=== PATIENT | male | born 1945 | race Caucasian/White ===

== ENCOUNTER → 2024-02-18 10:23 | Outpatient (REF) | payer MEDICARE, OTHER, SELFPAY | LOC: RCS 10:23 | PROVIDERS: ATTENDING PHYSICIAN Internal Medicine Cardiovascular Disease; FAMILY PHYSICIAN Internal Medicine | DX: I48.0 Paroxysmal atrial fibrillation (principal); R00.1 Bradycardia, unspecified; I42.8 Other cardiomyopathies; I11.0 Hypertensive heart disease with heart failure | CPT/HCPCS: 93306 ==